=== PATIENT | female | born 1945 | race Caucasian/White ===

== ENCOUNTER → 2018-09-08 | Outpatient (CLI) | payer MEDICARE, BC ==
--- NOTE | 2018-09-08 09:07 | CT ---
EXAMINATION TYPE: CT sinus wo con DATE OF EXAM: 09/08/2018 COMPARISON: None HISTORY: Chronic sinusitis CT DLP: 649.20 mGycm. Automated Exposure Control for Dose Reduction was Utilized. TECHNIQUE: CT scan of the sinuses is performed without contrast, axial images are obtained, coronal r eformatted images are also reviewed. FINDINGS: The paranasal sinuses including the frontal, ethmoid, sphenoid, and maxillary sinuses bila terally are well-aerated without abnormal opacification. Frontal sinuses hypoplastic. The ostiomeatal complex is patent bilaterally on the coronal images. Visualized portion of mastoid air cells show no abnormal opacification. The globes are intact bilate rally. IMPRESSION: The sinuses are clear and the ostiomeatal complex is patent bilaterally.
== END | disposition home or self-care (01) ==
LOC: RADCTMAIN 08:28
PROVIDERS: ATTEND Family Medicine
DX: J32.9 Chronic sinusitis, unspecified (principal)
CPT/HCPCS: 70486

== ENCOUNTER → 2019-05-29 | Outpatient (CLI) | payer MEDICARE, BC ==
[~2019-05-29] MED LIST: DENOSUMAB 60 MG/ML 1 ML SYRINGE SQ ONE
[2019-05-29 14:35] VITALS: BP 117/56; PULSE 70; RESP 16; TEMP 97.7
== END | disposition home or self-care (01) ==
LOC: PROCWHC3 13:33
PROVIDERS: ATTEND Family Medicine
DX: M81.0 Age-related osteoporosis without current pathological fracture (principal)
CPT/HCPCS: 96372; J0897

== ENCOUNTER → 2019-06-12 | Outpatient (CLI) | payer MEDICARE, BC ==
--- NOTE | 2019-06-12 09:02 | US ---
EXAMINATION TYPE: US abdomen comp/pelvis limited DATE OF EXAM: 06/12/2019 COMPARISON: NONE CLINICAL HISTORY: R64 Cachexia. Patient states 20 pound weight loss in two months without trying. EXAM MEASUREMENTS: Liver Length: 11.4 cm Gallbladder Wall: 0.2 cm CBD: 0.4 cm Spleen: 10.2 cm Right Kidney: 10.6 x 4.5 x 5.4 cm Left Kidney: 9.5 x 5.3 x 5.2 cm Patient states history of complete hysterectomy. Pancreas: visualized portions wnl Liver: wnl Gallbladder: No stones seen CBD: wnl Spleen: wnl Right Kidney: No hydronephrosis or masses seen Left Kidney: No hydronephrosis or masses seen Upper IVC: wnl Abd Aorta: wnl Bladder: wnl Bilateral Jets Seen Yes Extensive fluid filled bowel noted in RLQ & LLQ. Patient is status post complete hysterectomy. No ova neil or uterus are seen. IMPRESSION: 1. Abdominal and pelvic ultrasound are unremarkable. No solid masses are seen of the liver, kidneys, spleen, or visualized portions of the pancreas. Pancreatic tail and uncinate process are obscured by bowel gas. 2. Fluid-filled bowel is seen in the lower abdomen. Considering the patient's symptoms CT with oral c ontrast or colonoscopy could be considered to exclude partially obstructing mass.
== END | disposition home or self-care (01) ==
LOC: RADUSWWP 08:11
PROVIDERS: ATTEND Family Medicine
DX: R64 Cachexia (principal)
CPT/HCPCS: 76700; 76857

== ENCOUNTER → 2019-06-22 | Outpatient (CLI) | payer MEDICARE, BC ==
--- NOTE | 2019-06-25 08:20 | BMR ---
EXAMINATION TYPE: MR breast BILAT wo/w con DATE OF EXAM: 06/22/2019 COMPARISON: NONE HISTORY: Abnormal weight loss, history of silicone implants. Family history of breast cancer. CONTRAST: Multiplanar, multisequence images of the breasts were acquired utilizing 5 mL intravenous Gadavist ga dolinium contrast. TECHNIQUE: A series of fat and water weighted images in the long and short axis views of both breasts are obtained in conjunction with dynamic contrast MRI with subtraction technique. Three-dimensional and additional postprocessing imaging is created on independent workstation and reviewed during offi cial interpretation of this study. FINDINGS: Bilateral subpectoral silicone breast implants are seen. Breast sizes are fairly symmetric. Overlying breast parenchyma is predominantly fatty replaced. There is minimal to no background enhan cement. There are symmetric slightly prominent bilateral axillary lymph nodes. No internal mammary ad enopathy. No cystic change identified in either breast. No pathologic enhancement or suspicious wilder s is seen. No extracapsular silicone to suggest implant rupture. No suspicious infolding or lingually supplying bilaterally. Osseous structures are intact. IMPRESSION: No MRI evidence for invasive malignancy in either breast. BI-RADS 2 benign findings right breast BI-RADS 2 benign findings left breast Recommendation: Annual bilateral breast mammogram.
== END | disposition home or self-care (01) ==
LOC: RADMRIMAIN 12:21
PROVIDERS: ATTEND Family Medicine
DX: R63.4 Abnormal weight loss (principal); Z98.82 Breast implant status
CPT/HCPCS: C8937; C8908; A9585; 77049

== ENCOUNTER → 2019-11-28 | Outpatient (CLI) | payer MEDICARE, BC ==
[~2019-11-28] MED LIST changes: +DENOSUMAB 60 MG/ML 1 ML SYRINGE SQ NR; -DENOSUMAB 60 MG/ML 1 ML SYRINGE SQ ONE
[2019-11-28 09:29] VITALS: BP 130/71; PULSE 70; RESP 16; TEMP 98
== END | disposition home or self-care (01) ==
LOC: PROCWHC3 09:16
PROVIDERS: ATTEND Family Medicine
DX: M81.0 Age-related osteoporosis without current pathological fracture (principal)
CPT/HCPCS: 96372; J0897

== ENCOUNTER → 2020-07-18 | Outpatient (CLI) | payer MEDICARE, BC ==
[2020-07-18 09:27] VITALS: BP 113/65; PULSE 70; RESP 15; TEMP 98.4
== END | disposition home or self-care (01) ==
LOC: PROCWHC3 08:55
PROVIDERS: ATTEND Family Medicine
DX: M81.0 Age-related osteoporosis without current pathological fracture (principal)
CPT/HCPCS: 96372; J0897

== ENCOUNTER 2020-12-11 21:25 | Emergency (ER) | payer MEDICARE, BC ==
--- NOTE | 2020-12-11 21:35 | ED ---
Nausea/Vomiting/Diarrhea HPI - General Chief complaint: Nausea/Vomiting/Diarrhea Stated complaint: Vomiting/dizzy Time Seen by Provider: 12/11/20 21:31 Source: patient Mode of arrival: ambulatory Limitations: no limitations - History of Present Illness Initial comments: 75-year-old female with history of COPD presents emergency Department with a chief complaint of weakness, vomiting and lightheadedness. Daughter is also present in the room to answer additional questions. Daughter states the patient has short-term memory loss at baseline. Daughter states the patient has been progressively feeling weaker over the last 3 weeks. States she's a very picky eater and not eating as much or drinking. Patient states over the last several days she developed some exertional dyspnea but she does have history of emphysema. She is a former smoker. Patient reports nausea with one episode of nonbilious and nonbloody vomiting today. Afterwards the patient developed some lightheadedness but no dizziness. She denies any headaches blurry vision, one-s ided weakness or paresthesias. She denies any chest pain neck pain or abdominal pain at this time. Patient reports diarrhea but states that her baseline because she takes prune juice daily due to history of small bowel obstruction. She denies any urinary or vaginal symptoms. Denies any fevers or chills. - Related Data Previous Rx's Medication Instructions Recorded Ondansetron Odt [Zofran Odt] 4 mg PO Q8HR PRN #10 tab 12/11/20 Allergies Allergy/AdvReac Type Severity Reaction Status Date / Time codeine AdvReac Severe Nausea & Verified 12/11/20 21:29 Vomiting Review of Systems ROS Statement: Those systems with pertinent positive or pertinent negative responses have been documented in the HPI. ROS Other: All systems not noted in ROS Statement are negative. Past Medical History Past Medical History: COPD, Liver Disease, Pneumonia Additional Past Medical History / Comment(s): OSTEOPOROSIS. History of Any Multi-Drug Resistant Organisms: None Reported Past Surgical History: Appendectomy, Breast Surgery, Hysterectomy Additional Past Surgical History / Comment(s): DOUBLE MASTECTOMY D/T "MULTIPLE LUMPS AND HISTORY OF CANCER IN THE FAMILy" Past Anesthesia/Blood Transfusion Reactions: No Reported Reaction Past Psychological History: No Psychological Hx Reported Smoking Status: Current every day smoker Past Alcohol Use History: None Reported Past Drug Use History: None Reported General Exam Limitations: no limitations General appearance: alert, in no apparent distress Head exam: Present: atraumatic, normocephalic, normal inspection Eye exam: Present: normal appearance, PERRL, EOMI Pupils: Present: normal accommodation ENT exam: Present: normal exam, normal oropharynx, mucous membranes dry, TM's normal bilaterally, normal external ear exam Neck exam: Present: normal inspection, full ROM. Absent: tenderness, lymphadenopathy Respiratory exam: Present: normal lung sounds bilaterally. Absent: respiratory distress, wheezes, rales, rhonchi, stridor, chest wall tenderness Cardiovascular Exam: Present: regular rate, normal rhythm, normal heart sounds GI/Abdominal exam: Present: soft. Absent: distended, tenderness, guarding, rebound Extremities exam: Present: normal inspection, full ROM, normal capillary refill, other (Palpable DP and PT bilaterally). Absent: tenderness, pedal edema, joint swelling, calf tenderness Back exam: Present: normal inspection, full ROM. Absent: tenderness, CVA tenderness (R), CVA tenderness (L) Neurological exam: Present: alert, oriented X3, CN II-XII intact, normal gait Psychiatric exam: Present: normal affect, normal mood Skin exam: Present: warm, dry, intact, normal color Course Vital Signs 12/11/20 21:26 Temperature 97.5 F L Pulse Rate 70 Respiratory 16 Rate Blood Pressure 147/81 O2 Sat by Pulse 100 Oximetry Medical Decision Making - Medical Decision Making 75-year-old female with history of COPD presents emergency Department with chief complaint of vomiting, lightheadedness and weakness. On physical examination, patient has dry mucous membranes. No focal deficits. Patient is resting comfortably in bed and is otherwise well-appearing. Chest x-ray is unremarkable. CBC shows no signs of anemia. Initial potassium levels were elevated at 5.8, repeat was drawn showing potassium levels of 4.8. Likely hemolyzed sample. Initial lactic acid was 2.2 likely secondary to dehydration. Coags within normal limits. Troponin negative. Elevated d-dimer is 0.68. CT chest Angio shows no signs of a PE. She does have mild pulmonary scarring, mild COPD. Patient was given 1 L of IV bolus fluids and antiemetics. On reevaluation, patient reports improvement in symptoms. She was more talkative a s well. I suspect the dehydration is secondary to decrease in appetite. Advised the patient to drink plenty of fluids and advised to the mother to reinforce her to eat and drink more. Advised him to follow with the primary care physician. Return parameters were thoroughly discussed with patient and daughter who are understanding and agreeable. Case discussed with - Lab Data Result diagrams: 12/11/20 22:00 12/11/20 22:30 Lab Results 12/11/20 12/11/20 12/11/20 Range/Units 22:00 22:00 22:00 WBC 9.4 (3.8-10.6) k/uL RBC 4.90 (3.80-5.40) m/uL Hgb 15.2 (11.4-16.0) gm/dL Hct 46.1 H (34.0-46.0) % MCV 94.1 (80.0-100.0) fL MCH 31.0 (25.0-35.0) pg MCHC 32.9 (31.0-37.0) g/dL RDW 12.6 (11.5-15.5) % Plt Count 226 (150-450) k/uL MPV 8.1 Neutrophils % 77 % Lymphocytes % 14 % Monocytes % 4 % Eosinophils % 3 % Basophils % 1 % Neutrophils # 7.2 (1.3-7.7) k/uL Lymphocytes # 1.3 (1.0-4.8) k/uL Monocytes # 0.4 (0-1.0) k/uL Eosinophils # 0.3 (0-0.7) k/uL Basophils # 0.0 (0-0.2) k/uL PT 9.7 (9.0-12.0) sec INR 0.9 (<1.2) APTT 23.2 (22.0-30.0) sec D-Dimer 0.68 H (<0.60) mg/L FEU Sodium 141 (137-145) mmol/L Potassium 5.8 H (3.5-5.1) mmol/L Chloride 105 (98-107) mmol/L Carbon Dioxide 28 (22-30) mmol/L Anion Gap 8 mmol/L BUN 14 (7-17) mg/dL Creatinine 0.71 (0.52-1.04) mg/dL Est GFR (CKD-EPI)AfAm >90 (>60 ml/min/1.73 sqM) Est GFR (CKD-EPI)NonAf 84 (>60 ml/min/1.73 sqM) Glucose 128 H (74-99) mg/dL Plasma Lactic Acid Griffin (0.7-2.0) mmol/L Calcium 9.5 (8.4-10.2) mg/dL Magnesium 2.3 (1.6-2.3) mg/dL Total Bilirubin 0.6 (0.2-1.3) mg/dL AST 26 (14-36) U/L ALT 16 (4-34) U/L Alkaline Phosphatase 64 (38-126) U/L Troponin I (0.000-0.034) ng/mL Total Protein 7.4 (6.3-8.2) g/dL Albumin 4.7 (3.5-5.0) g/dL TSH 3.210 (0.465-4.680) mIU/L 12/11/20 12/11/20 12/11/20 Range/Units 22:00 22:00 22:30 WBC (3.8-10.6) k/uL RBC (3.80-5.40) m/uL Hgb (11.4-16.0) gm/dL Hct (34.0-46.0) % MCV (80.0-100.0) fL MCH (25.0-35.0) pg MCHC (31.0-37.0) g/dL RDW (11.5-15.5) % Plt Count (150-450) k/uL MPV Neutrophils % % Lymphocytes % % Monocytes % % Eosinophils % % Basophils % % Neutrophils # (1.3-7.7) k/uL Lymphocytes # (1.0-4.8) k/uL Monocytes # (0-1.0) k/uL Eosinophils # (0-0.7) k/uL Basophils # (0-0.2) k/uL PT (9.0-12.0) sec INR (<1.2) APTT (22.0-30.0) sec D-Dimer (<0.60) mg/L FEU Sodium (137-145) mmol/L Potassium 4.8 (3.5-5.1) mmol/L Chloride (98-107) mmol/L Carbon Dioxide (22-30) mmol/L Anion Gap mmol/L BUN (7-17) mg/dL Creatinine (0.52-1.04) mg/dL Est GFR (CKD-EPI)AfAm (>60 ml/min/1.73 sqM) Est GFR (CKD-EPI)NonAf (>60 ml/min/1.73 sqM) Glucose (74-99) mg/dL Plasma Lactic Acid Griffin 2.2 H* (0.7-2.0) mmol/L Calcium (8.4-10.2) mg/dL Magnesium (1.6-2.3) mg/dL Total Bilirubin (0.2-1.3) mg/dL AST (14-36) U/L ALT (4-34) U/L Alkaline Phosphatase (38-126) U/L Troponin I <0.012 (0.000-0.034) ng/mL Total Protein (6.3-8.2) g/dL Albumin (3.5-5.0) g/dL TSH (0.465-4.680) mIU/L - EKG Data EKG Comments: Sinus rhythm and no ST or T-wave changes Ventricular rate 71, MI 116, QRS 76, QTC 467. Disposition Clinical Impression: Dehydration Disposition: HOME SELF-CARE Condition: Stable Instructions (If sedation given, give patient instructions): Dehydration (ED) Additional Instructions: Please return to the Emergency Department if symptoms worsen or any other concerns. Prescriptions: Ondansetron Odt [Zofran Odt] 4 mg PO Q8HR PRN #10 tab PRN Reason: Nausea Is patient prescribed a controlled substance at d/c from ED?: No Referrals: None,Stated [REFERRING] - 1-2 days Time of Disposition: 23:39
[2020-12-11] MEDS ORDERED: SODIUM CHLORIDE 0.9% 1,000 ML IV STA (21:51)
[2020-12-11] MEDS ORDERED: ONDANSETRON 4 MG/2 ML VIAL IVP STA (21:51)
[2020-12-11 22:10] LABS: Basophils % (A) 1 %; Eosinophils # (A) 0.3 k/uL (0-0.7); Eosinophils % (A) 3 %; HCT 46.1 % (34.0-46.0); HGB 15.2 gm/dL (11.4-16.0); Lymphocytes # (A) 1.3 k/uL (1.0-4.8); Lymphocytes % (A) 14 %; MCHC 32.9 g/dL (31.0-37.0); MCV 94.1 fL (80.0-100.0); Mean Platelet Volume 8.1; Monocytes # (A) 0.4 k/uL (0-1.0); Monocytes % (A) 4 %; Neutrophils # (A) 7.2 k/uL (1.3-7.7); Neutrophils % (A) 77 %; Platelet Count 226 k/uL (150-450); RDW 12.6 % (11.5-15.5); WBC 9.4 k/uL (3.8-10.6)
[2020-12-11 22:19] LABS: Albumin 4.7 g/dL (3.5-5.0)
--- NOTE | 2020-12-11 22:23 | XR ---
EXAMINATION TYPE: XR chest 2V DATE OF EXAM: 12/11/2020 COMPARISON: NONE HISTORY: Weakness TECHNIQUE: 2 views FINDINGS: Heart and mediastinum are normal. Lungs are clear. Diaphragm is normal. Bony thorax appears normal. There are no hilar masses. There is no pleural effusion. There are chest leads. IMPRESSION: No active cardiopulmonary disease. Normal heart.
[2020-12-11 22:24] LABS: ALT 16 U/L (4-34); AST 26 U/L (14-36); African American GFR (CKD) >90 (>60 ml/min/1.73 sqM); Alkaline Phosphatase 64 U/L (38-126); Anion Gap 8 mmol/L; Blood Urea Nitrogen 14 mg/dL (7-17); Calcium 9.5 mg/dL (8.4-10.2); Carbon Dioxide 28 mmol/L (22-30); Chloride 105 mmol/L (98-107); Glucose 128 mg/dL (74-99); Magnesium 2.3 mg/dL (1.6-2.3); Non-African American GFR(CKD) 84 (>60 ml/min/1.73 sqM); Potassium 5.8 mmol/L (3.5-5.1); Sodium 141 mmol/L (137-145); Total Bilirubin 0.6 mg/dL (0.2-1.3); Total Protein 7.4 g/dL (6.3-8.2)
[2020-12-11 22:33] LABS: INR 0.9 (<1.2); Partial Thromboplastin Time 23.2 sec (22.0-30.0); Prothrombin Time 9.7 sec (9.0-12.0)
--- NOTE | 2020-12-11 23:19 | CT ---
EXAMINATION TYPE: CT chest angio for PE DATE OF EXAM: 12/11/2020 COMPARISON: None HISTORY: Dyspnea on exertion, elevated d-dimer CT DLP: 238.7 mGycm Automated exposure control for dose reduction was used. CONTRAST: Performed with IV Contrast, patient injected with 70 mL of Isovue 370. Images were obtained from the thoracic inlet to the diaphragm with IV contrast and 3-D post processed images. There is some pleural thickening and nodularity at both lung apices. There is mild COPD There is no mediastinal adenopathy. There are no hilar masses. There are bilateral breast implants. T horacic aorta is intact. There is no aneurysm or dissection. There is normal contrast opacification of the pulmonary arteries. There are no filling defects. Heart size is normal. There is no pericardial effusion. Thoracic spine is intact. There is no deja anktia fracture. IMPRESSION: No evidence of pulmonary embolism. Pleural and pulmonary scarring at the lung apices. Mild COPD.
[2020-12-12 00:06] VITALS: BP 140/70; PULSE 80; RESP 19; TEMP 98
== END 2020-12-12 | disposition home or self-care (01) ==
LOC: EC 21:25
DX: E86.0 Dehydration (principal); F17.200 Nicotine dependence, unspecified, uncomplicated; J44.9 Chronic obstructive pulmonary disease, unspecified
CPT/HCPCS: 99284 ×2; 96374 ×2; 96361 ×2; 93005; 85379; 80053; 83605; 83735; 84132; 84443; 84484; 85025; 85610; 85730; 71046; 71275; J2405; Q9967

== ENCOUNTER → 2021-01-20 | Outpatient (CLI) | payer MEDICARE, BC ==
[2021-01-20 09:09] VITALS: BP 110/70; PULSE 71; RESP 16; TEMP 98.6
== END ==
LOC: PROCWHC3 09:00
PROVIDERS: ATTEND Family Medicine
DX: M81.0 Age-related osteoporosis without current pathological fracture (principal); Z87.891 Personal history of nicotine dependence
CPT/HCPCS: 96372; J0897

== ENCOUNTER → 2021-08-20 | Outpatient (CLI) | payer MEDICARE, BC ==
[2021-08-20 11:08] VITALS: BP 112/60; PULSE 69; RESP 16; TEMP 98.5
== END ==
LOC: PROCWHC3 10:44
PROVIDERS: ATTEND Family Medicine
DX: M81.0 Age-related osteoporosis without current pathological fracture (principal); Z87.891 Personal history of nicotine dependence; Z88.5 Allergy status to narcotic agent
CPT/HCPCS: 96372; J0897

== ENCOUNTER → 2022-03-26 | Outpatient (CLI) | payer MEDICARE, BC ==
[2022-03-26 12:59] VITALS: BP 110/65; PULSE 66; RESP 16; TEMP 98
== END ==
LOC: PROCWHC3 12:28
PROVIDERS: ATTEND Family Medicine
DX: M81.0 Age-related osteoporosis without current pathological fracture (principal); Z88.5 Allergy status to narcotic agent; Z87.891 Personal history of nicotine dependence
CPT/HCPCS: 96372; J0897

== ENCOUNTER → 2022-10-22 | Outpatient (CLI) | payer MEDICARE, BC ==
[2022-10-22 11:34] VITALS: BP 106/67; PULSE 84; RESP 16; TEMP 98.1
== END ==
LOC: PROCWHC3 11:01
PROVIDERS: ATTEND Family Medicine
DX: M81.0 Age-related osteoporosis without current pathological fracture (principal); Z88.5 Allergy status to narcotic agent; Z87.891 Personal history of nicotine dependence
CPT/HCPCS: 96372; J0897

== ENCOUNTER → 2023-07-20 | Outpatient (CLI) | payer MEDICARE, BC ==
[2023-07-20 13:25] VITALS: BP 97/64; PULSE 64; RESP 16; TEMP 98.4
== END ==
LOC: PROCWHC3 12:52
PROVIDERS: ATTEND Physician Assistant Medical
DX: M81.0 Age-related osteoporosis without current pathological fracture (principal)
CPT/HCPCS: 96372; J0897

== ENCOUNTER 2024-07-25 16:14 | Inpatient (IN) | payer MEDICARE, BC ==
[2024-07-25 16:43] LABS: Glucose,Whole Blood 100 mg/dL (70-110)
[2024-07-25 19:23] LABS: Glucose,Whole Blood 95 mg/dL (70-110)
[2024-07-25 19:31] LABS: Basophils % (A) 0 %; Eosinophils # (A) 0.3 k/uL (0-0.7); Eosinophils % (A) 3 %; HGB 15.5 gm/dL (11.4-16.0); Lymphocytes # (A) 1.3 k/uL (1.0-4.8); Lymphocytes % (A) 18 %; MCH 31.5 pg (25.0-35.0); MCV 95.5 fL (80.0-100.0); Mean Platelet Volume 8.6; Monocytes # (A) 0.4 k/uL (0-1.0); Monocytes % (A) 6 %; Neutrophils # (A) 5.1 k/uL (1.3-7.7); Neutrophils % (A) 70 %; Platelet Count 246 k/uL (150-450); RBC 4.92 m/uL (3.80-5.40); RDW 12.3 % (11.5-15.5); WBC 7.3 k/uL (3.8-10.6)
[2024-07-25 19:34] LABS: Appearance,Urine Clear (Clear); Bacteria,Urine Occasional /hpf; Bilirubin,Urine Negative (Negative); Blood,Urine Negative (Negative); Color,Urine Colorless; Glucose,Urine (UA) Negative (Negative); Ketones,Urine Negative (Negative); Leukocyte Esterase,Urine Small (Negative); Mucus,Urine Rare /hpf; Nitrite,Urine Positive (Negative); Protein,Urine Negative (Negative); Specific Gravity,Urine 1.008 (1.001-1.035); Squamous Epithelial Cell,Urine <1 /hpf (0-4); Urobilinogen,Urine <2.0 mg/dL (<2.0); WBC,Urine 2 /hpf (0-5)
[2024-07-25 20:00] LABS: ALT 12 U/L (4-34); AST 20 U/L (14-36); African American GFR (CKD) >90 (>60 ml/min/1.73 sqM); Albumin 4.1 g/dL (3.5-5.0); Alkaline Phosphatase 85 U/L (38-126); Anion Gap 5 mmol/L; Blood Urea Nitrogen 16 mg/dL (7-17); Calcium 9.7 mg/dL (8.4-10.2); Carbon Dioxide 29 mmol/L (22-30); Chloride 105 mmol/L (98-107); Glucose 96 mg/dL (74-99); Non-African American GFR(CKD) 82 (>60 ml/min/1.73 sqM); Potassium 4.7 mmol/L (3.5-5.1); Sodium 139 mmol/L (137-145); Total Bilirubin 0.8 mg/dL (0.2-1.3); Total Protein 6.9 g/dL (6.3-8.2)
--- NOTE | 2024-07-25 20:09 | ED ---
General Adult HPI - General Chief complaint: Dizziness Stated complaint: dizziness Time Seen by Provider: 07/25/24 16:40 Source: patient Mode of arrival: ambulatory Limitations: no limitations - History of Present Illness Initial comments: 78-year-old female presents from home with altered mental status and inability to ambulate. Daughter is at bedside and helps for the history. States that she received multiple calls from her mother today stating that she could not ambulate due to feeling off balance. Patient seemed confused. She does have baseline dementia and will have some repetitive statements however daughter states that she is nothing like today. She is weak and was having difficulty ambulating. Patient felt like she was going a fall. Due to the symptoms she brought her into the hospital. The patient denies having any falls. No head injuries. No history of stroke. Denies any lateralizing weakness. No headache or visual changes. No speech deficit. She denies any urinary complaints to include dysuria, hematuria or difficulty voiding. No nausea or vomiting. No other alleviating, precipitating modifying factors - Related Data Home Medications Medication Instructions Recorded Confirmed No Known Home Medications 07/26/24 07/26/24 Allergies Allergy/AdvReac Type Severity Reaction Status Date / Time codeine AdvReac Severe Nausea & Verified 07/26/24 09:43 Vomiting Review of Systems ROS Statement: Those systems with pertinent positive or pertinent negative responses have been documented in the HPI. ROS Other: All systems not noted in ROS Statement are negative. Past Medical History Past Medical History: COPD, Dementia, Liver Disease, Pneumonia Additional Past Medical History / Comment(s): OSTEOPOROSIS. History of Any Multi-Drug Resistant Organisms: None Reported Past Surgical History: Appendectomy, Breast Surgery, Hysterectomy Additional Past Surgical History / Comment(s): DOUBLE MASTECTOMY D/T "MULTIPLE LUMPS AND HISTORY OF CANCER IN THE FAMILy" Past Anesthesia/Blood Transfusion Reactions: No Reported Reaction Past Psychological History: No Psychological Hx Reported Smoking Status: Current every day smoker Past Alcohol Use History: None Reported Past Drug Use History: None Reported General Exam Limitations: no limitations General appearance: alert, in no apparent distress Head exam: Present: atraumatic, normocephalic, normal inspection Eye exam: Present: normal appearance, PERRL, EOMI. Absent: scleral icterus, conjunctival injection, periorbital swelling ENT exam: Present: normal exam, mucous membranes moist Neck exam: Present: normal inspection. Absent: tenderness, meningismus, lymphadenopathy Respiratory exam: Present: normal lung sounds bilaterally. Absent: respiratory distress, wheezes, rales, rhonchi, stridor Cardiovascular Exam: Present: regular rate, normal rhythm, normal heart sounds. Absent: systolic murmur, diastolic murmur, rubs, gallop, clicks GI/Abdominal exam: Present: soft, normal bowel sounds. Absent: distended, tenderness, guarding, rebound, rigid Extremities exam: Present: normal inspection, full ROM, normal capillary refill. Absent: tenderness, pedal edema, joint swelling, calf tenderness Back exam: Present: normal inspection Neurological exam: Present: alert, CN II-XII intact, other (Oriented x 2) Psychiatric exam: Present: normal affect, normal mood Skin exam: Present: warm, dry, intact, normal color. Absent: rash Course Vital Signs 07/25/24 07/25/24 07/25/24 16:38 18:00 21:41 Temperature 97.3 F L Pulse Rate 66 67 68 Respiratory 22 16 16 Rate Blood Pressure 120/71 125/68 132/70 O2 Sat by Pulse 99 97 Oximetry 07/25/24 07/26/24 07/26/24 22:50 01:36 03:50 Temperature 97.3 F L Pulse Rate 65 67 54 L Respiratory 18 16 14 Rate Blood Pressure 133/69 114/50 90/54 O2 Sat by Pulse 98 98 97 Oximetry 07/26/24 07/26/24 07/26/24 06:14 09:18 13:28 Temperature 97.3 F L Pulse Rate 57 L 60 64 Respiratory 15 16 16 Rate Blood Pressure 102/50 108/57 104/48 O2 Sat by Pulse 99 95 95 Oximetry 07/26/24 20:31 Temperature 98.3 F Pulse Rate 66 Respiratory 16 Rate Blood Pressure 136/67 O2 Sat by Pulse 97 Oximetry Medical Decision Making - Medical Decision Making Was pt. sent in by a medical professional or institution (, PA, APPLICATIONS SUPPORT LEAD, urgent care, hospital, or long term...) When possible be specific @ -No Did you speak to anyone other than the patient for history (EMS, parent, family, police, friend...)? What history was obtained from this source @ -Spoke with the daughter for history who reports that the patient is confused Did you review nursing and triage notes (agree or disagree)? Why? @ -I reviewed and agree with nursing and triage notes Were old charts reviewed (outside hosp., previous admission, EMS record, old EKG, old radiological studies, urgent care reports/EKG's, long term records)? Report findings @ -No old charts were reviewed Differential Diagnosis (chest pain, altered mental status, abdominal pain women, abdominal pain men, vaginal bleeding, weakness, fever, dyspnea, syncope, headache, dizziness, GI bleed, back pain, seizure, CVA, palpatations, mental health, musculoskeletal)? @ -Differential Altered Mental Status: Hypoglycemia, DKA, hypercapnia, ETOH, overdose, CO poisoning, trauma, myxedema coma, HTN encephalopathy, infection, encephalitis, psychosis, intercranial hemorrhage, hepatic encephalopathy, meningitis, CVA, this is not meant to be an all-inclusive list EKG interpreted by me (3pts min.). @ -Yes and demonstrates sinus rhythm with rate of 66. ND interval 147. QRS 80. QTc 411. No acute ST segment elevations or depressions X-rays interpreted by me (1pt min.). @ -Yes and demonstrates no acute process CT interpreted by me (1pt min.). @ -Yes and demonstrates no acute process U/S interpreted by me (1pt. min.). @ -None done What testing was considered but not performed or refused? (CT, X-rays, U/S, labs)? Why? @ -None What meds were considered but not given or refused? Why? @ -None Did you discuss the management of the patient with other professionals (professionals i.e. , PA, APPLICATIONS SUPPORT LEAD, lab, RT, psych nurse, home health care social worker, plastics patternmaker, teacher, purchasing officer, supportive employment case manager)? Give summary @ -Spoke with Dr. Najera for admission Was smoking cessation discussed for >3mins.? @ -No Was critical care preformed (if so, how long)? @ -No Were there social determinants of health that impacted care today? How? (Homelessness, low income, unemployed, alcoholism, drug addiction, transportation, low edu. Level, literacy, decrease access to med. care, assisted, rehab)? @ -No Was there de-escalation of care discussed even if they declined (Discuss DNR or withdrawal of care, Hospice)? DNR status @ -No What co-morbidities impacted this encounter? (DM, HTN, Smoking, COPD, CAD, Cancer, CVA, ARF, Chemo, Hep., AIDS, mental health diagnosis, sleep apnea, morbid obesity)? @ -Dementia Was patient admitted / discharged? Hospital course, mention meds given and route, prescriptions, significant lab abnormalities, going to OR and other pertinent info. @ -Upon arrival patient seen and evaluated in hallway 22. Thorough history and physical exam was performed. IV access was established. Laboratory studies were conducted. CT of the brain was performed due to confusion and ataxia. Results are discussed with the daughter and patient. Recommended admission as the patient does live alone. Patient was agreeable to this. Antibiotics are initiated for UTI. Neurology will be consulted for ataxia Undiagnosed new problem with uncertain prognosis? @ -No Drug Therapy requiring intensive monitoring for toxicity (Heparin, Nitro, Insulin, Cardizem)? @ -No Were any procedures done? @ -No Diagnosis/symptom? @ -Acute encephalopathy, acute UTI, acute ataxia Acute, or Chronic, or Acute on Chronic? @ -Acute Uncomplicated (without systemic symptoms) or Complicated (systemic symptoms)? @ -Complicated Side effects of treatment? @ -No Exacerbation, Progression, or Severe Exacerbation? @ -No Poses a threat to life or bodily function? How? (Chest pain, [place], [place], pneumonia, PE, COPD, DKA, ARF, appy, cholecystitis, CVA, Diverticulitis, Homicidal, Suicidal, threat to staff... and all critical care pts) @ -No - Lab Data Result diagrams: 07/26/24 07:12 07/26/24 07:12 Lab Results 07/25/24 07/25/24 07/25/24 Range/Units 16:42 18:13 18:13 WBC 7.3 (3.8-10.6) k/uL RBC 4.92 (3.80-5.40) m/uL Hgb 15.5 (11.4-16.0) gm/dL Hct 47.0 H (34.0-46.0) % MCV 95.5 (80.0-100.0) fL MCH 31.5 (25.0-35.0) pg MCHC 33.0 (31.0-37.0) g/dL RDW 12.3 (11.5-15.5) % Plt Count 246 (150-450) k/uL MPV 8.6 Neutrophils % 70 % Lymphocytes % 18 % Monocytes % 6 % Eosinophils % 3 % Basophils % 0 % Neutrophils # 5.1 (1.3-7.7) k/uL Lymphocytes # 1.3 (1.0-4.8) k/uL Monocytes # 0.4 (0-1.0) k/uL Eosinophils # 0.3 (0-0.7) k/uL Basophils # 0.0 (0-0.2) k/uL Sodium (137-145) mmol/L Potassium (3.5-5.1) mmol/L Chloride (98-107) mmol/L Carbon Dioxide (22-30) mmol/L Anion Gap mmol/L BUN (7-17) mg/dL Creatinine (0.52-1.04) mg/dL Est GFR (CKD-EPI)AfAm (>60 ml/min/1.73 sqM) Est GFR (CKD-EPI)NonAf (>60 ml/min/1.73 sqM) Glucose (74-99) mg/dL POC Glucose (mg/dL) 100 (70-110) mg/dL POC Glu Certified Ethical Hacker ID [place] Calcium (8.4-10.2) mg/dL Total Bilirubin (0.2-1.3) mg/dL AST (14-36) U/L ALT (4-34) U/L Alkaline Phosphatase (38-126) U/L Troponin I (0.000-0.034) ng/mL Total Protein (6.3-8.2) g/dL Albumin (3.5-5.0) g/dL Urine Color Colorless Urine Appearance Clear (Clear) Urine pH 7.0 (5.0-8.0) Ur Specific [place] 1.008 (1.001-1.035) Urine Protein Negative (Negative) Urine Glucose (UA) Negative (Negative) Urine Ketones Negative (Negative) Urine Blood Negative (Negative) Urine Nitrite Positive H (Negative) Urine Bilirubin Negative (Negative) Urine Urobilinogen <2.0 (<2.0) mg/dL Ur Leukocyte Esterase Small H (Negative) Urine WBC 2 (0-5) /hpf Ur Squamous Epith Cells <1 (0-4) /hpf Urine Bacteria Occasional H (None) /hpf Urine Mucus Rare H (None) /hpf 07/25/24 07/25/24 07/25/24 Range/Units 18:13 19:15 19:21 WBC (3.8-10.6) k/uL RBC (3.80-5.40) m/uL Hgb (11.4-16.0) gm/dL Hct (34.0-46.0) % MCV (80.0-100.0) fL MCH (25.0-35.0) pg MCHC (31.0-37.0) g/dL RDW (11.5-15.5) % Plt Count (150-450) k/uL MPV Neutrophils % % Lymphocytes % % Monocytes % % Eosinophils % % Basophils % % Neutrophils # (1.3-7.7) k/uL Lymphocytes # (1.0-4.8) k/uL Monocytes # (0-1.0) k/uL Eosinophils # (0-0.7) k/uL Basophils # (0-0.2) k/uL Sodium 139 (137-145) mmol/L Potassium 4.7 (3.5-5.1) mmol/L Chloride 105 (98-107) mmol/L Carbon Dioxide 29 (22-30) mmol/L Anion Gap 5 mmol/L BUN 16 (7-17) mg/dL Creatinine 0.71 (0.52-1.04) mg/dL Est GFR (CKD-EPI)AfAm >90 (>60 ml/min/1.73 sqM) Est GFR (CKD-EPI)NonAf 82 (>60 ml/min/1.73 sqM) Glucose 96 (74-99) mg/dL POC Glucose (mg/dL) 95 (70-110) mg/dL POC Glu Certified Ethical Hacker ID [place] Calcium 9.7 (8.4-10.2) mg/dL Total Bilirubin 0.8 (0.2-1.3) mg/dL AST 20 (14-36) U/L ALT 12 (4-34) U/L Alkaline Phosphatase 85 (38-126) U/L Troponin I <0.012 (0.000-0.034) ng/mL Total Protein 6.9 (6.3-8.2) g/dL Albumin 4.1 (3.5-5.0) g/dL Urine Color Urine Appearance (Clear) Urine pH (5.0-8.0) Ur Specific [place] (1.001-1.035) Urine Protein (Negative) Urine Glucose (UA) (Negative) Urine Ketones (Negative) Urine Blood (Negative) Urine Nitrite (Negative) Urine Bilirubin (Negative) Urine Urobilinogen (<2.0) mg/dL Ur Leukocyte Esterase (Negative) Urine WBC (0-5) /hpf Ur Squamous Epith Cells (0-4) /hpf Urine Bacteria (None) /hpf Urine Mucus (None) /hpf Disposition Clinical Impression: Encephalopathy acute, UTI (urinary tract infection), Ataxia Disposition: ADMITTED IP TO THIS HOSP Condition: Stable Is patient prescribed a controlled substance at d/c from ED?: No Time of Disposition: 22:18 Decision to Admit Reason: Admit from EC Decision Date: 07/25/24 Decision Time: 22:18
[2024-07-25] MEDS: SODIUM CHLORIDE 0.9% 1,000 ML IV STA (20:27)
[2024-07-25] MEDS: cefTRIAXone IN SWFI 1,000 MG/10 ML SYRINGE IVP STA (20:28)
--- NOTE | 2024-07-25 21:16 | CT ---
EXAMINATION TYPE: CT brain wo con CT DLP: Combined DLP [id number] mGycm, Automated exposure control for dose reduction was used. DATE OF EXAM: 07/25/2024 8:41 PM COMPARISON: 09/08/2018. CLINICAL INDICATION: Female, 78 years old with history of ataxia, Ataxia TECHNIQUE: Brain: Axial CT images of the brain were obtained with coronal and sagittal reformats created and rev iewed. Contrast used: None. Oral contrast used: None. FINDINGS: Brain: Extra-axial spaces: No abnormal extra-axial fluid collections. Ventricular system: Within normal limits Cerebral parenchyma: No acute intraparenchymal hemorrhage or mass effect. The monahan-white junction is well differentiated. Cerebellum: Unremarkable. Mass effect: No evidence of midline shift. Intracranial vasculature: Atherosclerotic calcifications of the intracranial vessels. Soft tissues: Normal. Calvarium/osseous structures: No depressed skull fracture. Paranasal sinuses and mastoid air cells: Mild scattered paranasal sinus disease. Visualized orbits: Bilateral aphakia IMPRESSION: No acute intracranial process. [facility], , 07/25/2024 9:14 PM
--- NOTE | 2024-07-25 21:26 | CT ---
EXAMINATION TYPE: CT angio head neck CT DLP: Combined DLP of mGycm, Automated exposure control for dose reduction was used. DATE OF EXAM: 07/25/2024 8:46 PM COMPARISON: 07/11/2023. CLINICAL INDICATION: Female, 78 years old with history of ataxia; PHH, Ataxia TECHNIQUE: Axially acquired helical CT angiogram of the head and neck was obtained with contrast. Axi al images are supplemented with 3D reconstructions and MIP images which were post-processed at an in dependent workstation. NASCET criteria used. Contrast used:65cc mL of Isovue 370 with IV Contrast, Oral contrast used: None. FINDINGS: CTA HEAD: No evidence of acute intracranial hemorrhage, mass effect, or midline shift. The ventricles, sulci, a nd cisterns are unremarkable. Vertebral arteries: The vertebral arteries are patent. Vertebral artery dominance: Codominant Basilar artery: The basilar artery is intact. The basilar artery bifurcation is normal. Internal Carotid arteries: The cervical, petrous, cavernous and supraclinoid segments are normal. DAVID: Patent with no evidence of aneurysm. ACOM: Present without evidence of aneurysm. MCA: Patent with no evidence of aneurysm. SAUSAGE MIXER: Patent with no evidence of aneurysm. PCOM: Hypoplastic bilaterally. Dural sinuses: Patent. CTA NECK: Right Carotid System: The common carotid and external carotid arteries are patent. There is less than 25% stenosis at the c arotid bifurcation secondary to calcified/noncalcified plaque. The rest of the internal carotid arter y is patent. Left Carotid System: The common carotid and external carotid arteries are patent. There is less than 25% stenosis at the c arotid bifurcation secondary to calcified/noncalcified plaque. The rest of the internal carotid arter y is patent. Vertebral arteries are patent without evidence hemodynamically significant stenosis. There is a three-vessel aortic arch. The origins of the great vessels are patent. No evidence of hemo dynamically significant stenosis. Upper thorax: Centrilobular and paraseptal emphysema changes. Scattered sub-6 mm pulmonary nodules. P artially visualized breast implants with calcifications along the capsule on the left. IMPRESSION: 1. No evidence of dissection of the cervical internal carotid arteries or vertebral arteries or any e vidence of significant stenosis at the carotid bifurcations. 2. No evidence of intracranial high-grade stenosis or intracranial aneurysm. 3. Scattered sub-6 mm pulmonary nodules, follow-up low-dose lung cancer screening recommended as cynthia ent/exam was 07/11/2023 on a nonemergent outpatient basis.. 4. Mild emphysema changes. [facility], , 07/25/2024 9:23 PM
--- NOTE | 2024-07-25 22:12 | XR ---
EXAMINATION TYPE: XR chest 2V DATE OF EXAM: 07/25/2024 9:58 PM CLINICAL INDICATION: Female, 78 years old with history of near syncope; [facility] COMPARISON: Chest radiographs from 12/11/2020 TECHNIQUE: XR chest 2V Frontal view of the chest. FINDINGS: Lungs/Pleura: There is flattening of the diaphragm with increased lucency of the lungs. No evidence o f pneumothorax, pleural effusion or focal consolidation. Pulmonary vascularity: Unremarkable. Heart/mediastinum: Cardiomediastinal silhouette is unremarkable. Musculoskeletal: No acute osseous pathology. Other findings: bilateral breast implants present IMPRESSION: 1. No acute cardiopulmonary disease process. 2. COPD changes. [facility], , 07/25/2024 10:10 PM
[2024-07-25] MEDS ORDERED: NALOXONE 0.4 MG/ML 1 ML VIAL IV PRN (22:19)
--- NOTE | 2024-07-25 23:43 | P.HPIM ---
History of Present Illness H&P Date: 07/25/24 Chief Complaint: UTI with confusion Patient is a 78-year-old female with COPD, and dementia who came in for altered mental status and inability to ambulate. Patient is a poor historian and does not recall any events for the last 24 hours. Per ED documentation, patient's daughter mentioned that she received multiple calls from her mother stating that she could not ambulate due to feeling off balance and seemed confused. Although patient has dementia, daughter reported that this is worse than her baseline. Patient denies focal weakness, changes in vision, changes in speech, tremors, fever, diaphoresis, chills chest pain, shortness of breath, leg pain, abdominal pain, hematuria, dysuria, nausea or vomiting, diarrhea, constipation, or recent travel. She is a current smoker and she has smoked half a pack a day for 60 years. Review of systems: Pertinent positives and negatives as discussed in HPI, a complete review of systems was performed and all other systems are negative. Physical examination: Vital signs reviewed General: non toxic, no distress, appears at stated age Derm: no unusual rashes/lesions, warm Head: atraumatic, normocephalic, symmetric Eyes: EOMI, anicteric sclera, pupils equal round reactive to light ENT: Nose and ears atraumatic Neck: No no masses or lesions, trachea midline, supple Mouth: no lip lesion, mucus membranes moist Cardiovascular: S1S2 reg, no murmur Lungs: CTA bilateral, no rhonchi, no rales, no accessory muscle use Abdominal: soft, nondistended, nontender to palpation, no guarding Ext: muscle strength 5 out of 5 in distal upper and lower extremities grossly, no gross muscle atrophy, no contractures, positive dorsalis pedis pulse bilateral, no leg edema Neuro: CN II-XI grossly intact, no gross focal neuro deficits Psych: Alert and oriented x 3, appropriate affect and mood Assessment/Plan: 78-year-old female who came in for altered mental status and inability to ambulate. Imaging is negative for ischemic or hemorrhagic stroke, VTE, or OR. Urinalysis showed positive for UTI . ED documentation reviewed and case discussed with ED provider. Agreed to admit this patient for encephalopathy and evaluation of UTI. Anticipated length of stay is greater than 2 midnights for evaluation. #. Delirium due to UTI Brain CT negative for ischemia, bleeds or aneurysms.Urinalysis positive for nitrites and leukocyte esterase -Fall precautions -Rocephin 1 g IVPB daily -IV fluids NS 0.9% 75 cc/h -Tylenol 650 mg p.o. every 6 hours as needed for fever and pain -CBC and CMP, mag, and Phos at a.m. -Consult neurology blood work showing , WBC 7 Hgn 15.5 , unremarkable renal fucntion unremarkable na 139, K 4..7 ,BUN 16 cr 0.7 Chronic conditions: #. COPD -Resume home medications once reconciled DVT prophylaxis: Lovenox 40 mg SQ daily CODE STATUS: Full Discussed with: Patient Anticipated discharge place: Home Past Medical History Past Medical History: COPD, Dementia, Liver Disease, Pneumonia Additional Past Medical History / Comment(s): OSTEOPOROSIS. History of Any Multi-Drug Resistant Organisms: None Reported Past Surgical History: Appendectomy, Breast Surgery, Hysterectomy Additional Past Surgical History / Comment(s): DOUBLE MASTECTOMY D/T "MULTIPLE LUMPS AND HISTORY OF CANCER IN THE FAMILy" Past Anesthesia/Blood Transfusion Reactions: No Reported Reaction Past Psychological History: No Psychological Hx Reported Smoking Status: Current every day smoker Past Alcohol Use History: None Reported Past Drug Use History: None Reported Medications and Allergies Home Medications Medication Instructions Recorded Confirmed Type Multivitamin [Multivitamins Adult 1 tab PO DAILY 03/26/22 07/20/23 History Gummies] Tumeric 1 tab PO DAILY 03/26/22 07/20/23 History Allergies Allergy/AdvReac Type Severity Reaction Status Date / Time codeine AdvReac Severe Nausea & Verified 07/25/24 16:41 Vomiting Physical Exam Vitals: Vital Signs Temp Pulse Resp BP Pulse Ox 07/25/24 21:41 68 16 132/70 97 07/25/24 18:00 67 16 125/68 07/25/24 16:38 97.3 F L 66 22 120/71 99 Intake and Output 07/25/24 07/25/24 07/25/24 06:59 14:59 22:59 Other: Weight 46.72 kg Results CBC & Chem 7: 07/25/24 18:13 07/25/24 18:13 Labs: Abnormal Lab Results - Last 24 Hours (Table) 07/25/24 07/25/24 Range/Units 18:13 18:13 Hct 47.0 H (34.0-46.0) % Urine Nitrite Positive H (Negative) Ur Leukocyte Esterase Small H (Negative) Urine Bacteria Occasional H (None) /hpf Urine Mucus Rare H (None) /hpf
[2024-07-26] MEDS ORDERED: ONDANSETRON 4 MG/2 ML VIAL IVP PRN (00:34)
[2024-07-26] MEDS ORDERED: DOCUSATE 100 MG CAP PO PRN (00:34)
[2024-07-26 08:10] LABS: Basophils % (A) 1 %; Eosinophils # (A) 0.2 k/uL (0-0.7); Eosinophils % (A) 3 %; HCT 46.5 % (34.0-46.0); HGB 14.3 gm/dL (11.4-16.0); Lymphocytes # (A) 0.8 k/uL (1.0-4.8); Lymphocytes % (A) 13 %; MCH 29.7 pg (25.0-35.0); MCHC 30.8 g/dL (31.0-37.0); MCV 96.4 fL (80.0-100.0); Monocytes # (A) 0.4 k/uL (0-1.0); Monocytes % (A) 7 %; Neutrophils # (A) 4.8 k/uL (1.3-7.7); Neutrophils % (A) 75 %; Platelet Count 232 k/uL (150-450); RBC 4.82 m/uL (3.80-5.40); RDW 12.3 % (11.5-15.5); WBC 6.4 k/uL (3.8-10.6)
[2024-07-26 08:26] LABS: African American GFR (CKD) >90 (>60 ml/min/1.73 sqM); Anion Gap 2 mmol/L; Blood Urea Nitrogen 10 mg/dL (7-17); Calcium 9.4 mg/dL (8.4-10.2); Carbon Dioxide 27 mmol/L (22-30); Chloride 109 mmol/L (98-107); Glucose 89 mg/dL (74-99); Magnesium 1.8 mg/dL (1.6-2.3); Non-African American GFR(CKD) 85 (>60 ml/min/1.73 sqM); Phosphorus 4.2 mg/dL (2.5-4.5); Potassium 5.4 mmol/L (3.5-5.1); Sodium 138 mmol/L (137-145)
[2024-07-26] MEDS ORDERED: cefTRIAXone IN SWFI 1,000 MG/10 ML SYRINGE IVP SCH (09:00)
[2024-07-26] MEDS: ENOXAPARIN 40 MG/0.4 ML SYRINGE SQ SCH (09:06)
[2024-07-26] MEDS: SODIUM CHLORIDE 0.9% 1,000 ML IV SCH ×2 (09:14→09:20)
[2024-07-26] MEDS: PANTOPRAZOLE 40 MG TABLET PO SCH (09:18)
--- NOTE | 2024-07-26 12:07 | P.PN ---
Subjective Progress Note Date: 07/26/24 Hospital Course: 78-year-old female with history of dementia, COPD presenting with altered menta tion and weakness. Vital signs unremarkable, laboratory workup unremarkable except for urine was positive for nitrites and small leukocyte esterase. Head CT did not show any acute process. CTA head and neck showed scattered sub-6 mm pulmonary nodules, recommending outpatient low-dose lung cancer screening. EKG showed normal sinus rhythm. Chest x-ray showed no acute process. Patient admitted for acute encephalopathy secondary to likely urinary tract infection with. Patient also had ataxia, neurology consulted. Subjective: She is seen and examined at bedside. No acute events overnight. Pertinent positives and negatives as discussed above, a complete review of systems was performed and all other systems are negative. Vitals Signs Reviewed. General: Nontoxic, no distress, appears at stated age Derm: Warm, dry Head: Atraumatic, normocephalic, symmetric Eyes: EOMI, no lid lag, anicteric sclera Mouth: No lip lesion, mucus membranes moist Cardiovascular: S1S2 reg, no murmur Lungs: CTA bilateral, no rhonchi, no rales, no accessory muscle use Abdominal: Soft, nontender to palpation, no guarding, no appreciable organomegaly Ext: No gross muscle atrophy, no edema, no contractures Neuro: CN II-XI grossly intact, no focal neuro deficits Psych: Alert, oriented x 1, appropriate affect Data Reviewed Today: Pertinent Labs: WBC 6.4, hemoglobin 14.3, potassium 5.4, creatinine 0.67, magnesium 1.8 Imaging: No new imaging Assessment and Plan: Acute encephalopathy Generalized weakness Ataxia History of dementia Urinary tract infection -CT brain, CTA head and neck did not show any acute process -B12, folic acid, TSH ordered -Patient to be continued on ceftriaxone 1 g IV daily -Urine cultures not obtained prior to giving antibiotics -Neurology consulted, pending recommendations Mild hyperkalemia -Repeat BMP tomorrow COPD, not in exacerbation -Continue to monitor Subcentimeter pulmonary nodules -Outpatient follow-up DVT ppx: Lovenox Code status: Full code Anticipated discharge place: Pending clinical course Anticipated discharge time: Pending clinical course Objective - Vital Signs Vital signs: Vital Signs Temp 97.3 F L 07/25/24 22:50 Pulse 60 07/26/24 09:18 Resp 16 07/26/24 09:18 BP 108/57 07/26/24 09:18 Pulse Ox 95 07/26/24 09:18 FiO2 Intake & Output 07/25/24 07/26/24 07/26/24 18:59 06:59 18:59 Weight 46.72 kg Other: # Voids 1 - Labs CBC & Chem 7: 07/26/24 07:12 07/26/24 07:12 Labs: Abnormal Lab Results - Last 24 Hours (Table) 07/25/24 07/25/24 07/26/24 Range/Units 18:13 18:13 07:12 Hct 47.0 H 46.5 H (34.0-46.0) % MCHC 30.8 L (31.0-37.0) g/dL Lymphocytes # 0.8 L (1.0-4.8) k/uL Potassium (3.5-5.1) mmol/L Chloride (98-107) mmol/L Urine Nitrite Positive H (Negative) Ur Leukocyte Esterase Small H (Negative) Urine Bacteria Occasional H (None) /hpf Urine Mucus Rare H (None) /hpf 07/26/24 Range/Units 07:12 Hct (34.0-46.0) % MCHC (31.0-37.0) g/dL Lymphocytes # (1.0-4.8) k/uL Potassium 5.4 H (3.5-5.1) mmol/L Chloride 109 H (98-107) mmol/L Urine Nitrite (Negative) Ur Leukocyte Esterase (Negative) Urine Bacteria (None) /hpf Urine Mucus (None) /hpf
[2024-07-26 14:12] VITALS: BMI 17.1
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
[2024-07-27 10:16] LABS: Appearance,Urine Clear (Clear); Bilirubin,Urine Negative (Negative); Blood,Urine Negative (Negative); Color,Urine Colorless; Glucose,Urine (UA) Negative (Negative); Ketones,Urine Negative (Negative); Leukocyte Esterase,Urine Negative (Negative); Nitrite,Urine Negative (Negative); Protein,Urine Negative (Negative); Specific Gravity,Urine 1.015 (1.001-1.035); Urobilinogen,Urine <2.0 mg/dL (<2.0)
[2024-07-27] MEDS: FOLIC ACID 1 MG TAB PO SCH (11:14)
[2024-07-27] MEDS: CYANOCOBALAMIN 1,000 MCG/ML 1 ML VIAL IM SCH (11:14)
[2024-07-27 11:16] LABS: BUN/Creat Ratio 13.57 Ratio (12.00-20.00); Blood Urea Nitrogen 9.5 mg/dL (9.0-27.0); Calcium 8.9 mg/dL (8.7-10.3); Carbon Dioxide 23.6 mmol/L (21.6-31.8); Chloride 109 mmol/L (96-109); Glucose 97 mg/dL (70-110); Potassium 4.8 mmol/L (3.5-5.5); Sodium 141 mmol/L (135-145)
--- NOTE | 2024-07-27 13:19 | P.PN ---
Subjective Progress Note Date: 07/27/24 Pt reports feeling overall better. Still reports dizziness and weakness when ambulating. Gen: In NAD, non-toxic HEENT: normocephalic, atraumatic, hearing acuity is intant, mucous membranes moist CVS: perfusing all extremities well, no pitting edema, Respiratory: symmetric chest expansion, no accessory muscle use, GI: soft, NTTP, ND, : no suprapubic tenderness, no CVA tenderness MSK/Derm: no rashes, cyanosis Neuro: CN II-XII intact, no motor weakness, Psych: cooperative, euthymic mood, judgment and insight is intact Hospital Course: 78-year-old female with history of dementia, COPD presenting with altered mentation and weakness. Vital signs unremarkable, laboratory workup unremarkable except for urine was positive for nitrites and small leukocyte esterase. Head CT did not show any acute process. CTA head and neck showed scattered sub-6 mm pulmonary nodules, recommending outpatient low-dose lung cancer screening. EKG showed normal sinus rhythm. Chest x-ray showed no acute process. Patient admitted for acute encephalopathy secondary to likely urinary tract infection with. Patient also had ataxia, neurology consulted. Assessment and Plan: Acute encephalopathy Generalized weakness Ataxia History of dementia Urinary tract infection -CT brain, CTA head and neck did not show any acute process -B12, folic acid, TSH ordered, consistent with B12 deficiency and was started on B12 replacement by neurology -Patient to be continued on ceftriaxone 1 g IV daily -Urine cultures not obtained prior to giving antibiotics, repeat -Neurology consulted, pending recommendations Mild hyperkalemia -Repeat BMP tomorrow COPD, not in exacerbation -Continue to monitor Subcentimeter pulmonary nodules -Outpatient follow-up DVT ppx: Lovenox Code status: Full code Anticipated discharge place: Pending PT assessment Anticipated discharge time: Pending clinical course Objective - Vital Signs Vital signs: Vital Signs Temp 98.3 F 07/27/24 07:00 Pulse 65 07/27/24 07:00 Resp 17 07/27/24 02:37 BP 116/63 07/27/24 07:00 Pulse Ox 99 07/27/24 07:00 FiO2 Intake & Output 07/26/24 07/27/24 07/27/24 18:59 06:59 18:59 Intake Total 118 Balance 118 Weight 46.72 kg 46.72 kg Intake: Oral 118 Other: Voiding Method Toilet Toilet # Voids 4 - Labs CBC & Chem 7: 07/26/24 07:12 07/27/24 04:39 Labs: Abnormal Lab Results - Last 24 Hours (Table) 07/26/24 Range/Units 07:12 Vitamin B12 154.0 L (200.0-944.0) pg/mL
--- NOTE | 2024-07-28 12:54 | P.PN ---
Subjective Progress Note Date: 07/28/24 Pt reports feeling overall better. No new complaints at this time. PT eval is pending. Gen: In NAD, non-toxic HEENT: normocephalic, atraumatic, hearing acuity is intant, mucous membranes moist CVS: perfusing all extremities well, no pitting edema, Respiratory: symmetric chest expansion, no accessory muscle use, GI: soft, NTTP, ND, : no suprapubic tenderness, no CVA tenderness MSK/Derm: no rashes, cyanosis Neuro: CN II-XII intact, no motor weakness, Psych: cooperative, euthymic mood, judgment and insight is intact Hospital Course: 78-year-old female with history of dementia, COPD presenting with altered mentation and weakness. Vital signs unremarkable, laboratory workup unremarkable except for urine was positive for nitrites and small leukocyte esterase. Head CT did not show any acute process. CTA head and neck showed scattered sub-6 mm pulmonary nodules, recommending outpatient low-dose lung cancer screening. EKG showed normal sinus rhythm. Chest x-ray showed no acute process. Patient admitted for acute encephalopathy secondary to likely urinary tract infection with. Patient also had ataxia, neurology consulted. Assessment and Plan: Acute encephalopathy Generalized weakness Ataxia History of dementia Urinary tract infection -CT brain, CTA head and neck did not show any acute process -B12, folic acid, TSH ordered, consistent with B12 deficiency and was started on B12 replacement by neurology -Patient to be continued on ceftriaxone 1 g IV daily -Urine cultures not obtained prior to giving antibiotics, repeat -Neurology consulted, pending recommendations Mild hyperkalemia -Repeat BMP tomorrow COPD, not in exacerbation -Continue to monitor Subcentimeter pulmonary nodules -Outpatient follow-up DVT ppx: Lovenox Code status: Full code Anticipated discharge place: Pending PT assessment Anticipated discharge time: Pending clinical course Objective - Vital Signs Vital signs: Vital Signs Temp 97.6 F 07/28/24 07:48 Pulse 53 L 07/28/24 09:33 Resp 17 07/28/24 07:48 BP 104/55 07/28/24 09:33 Pulse Ox 97 07/28/24 09:33 FiO2 Intake & Output 07/27/24 07/28/24 07/28/24 18:59 06:59 18:59 Intake Total 138 354 Balance 138 354 Intake: Oral 138 354 Other: Voiding Method Toilet Toilet Toilet # Voids 1 5 # Bowel Movements 0 - Labs CBC & Chem 7: 07/26/24 07:12 07/27/24 04:39
--- NOTE | 2024-07-28 13:25 | P.PN ---
Subjective Progress Note Date: 07/27/24 Patient was seen for a follow-up. Patient is laying in the bed. She feels dizzy every time she sits up. No new concerns. Objective - Vital Signs Vital signs: Vital Signs Temp 97.6 F 07/28/24 07:48 Pulse 53 L 07/28/24 09:33 Resp 17 07/28/24 07:48 BP 104/55 07/28/24 09:33 Pulse Ox 97 07/28/24 09:33 FiO2 Intake & Output 07/27/24 07/28/24 07/28/24 18:59 06:59 18:59 Intake Total 138 354 Balance 138 354 Intake: Oral 138 354 Other: Voiding Method Toilet Toilet Toilet # Voids 1 5 # Bowel Movements 0 - Exam Patient's somnolent. Examination otherwise unchanged. - Labs CBC & Chem 7: 07/26/24 07:12 07/27/24 04:39 Assessment and Plan Assessment: * 72-year-old female presented with 2-week history of intermittent dizziness, lightheadedness, and near syncopal symptoms. Exact cause is uncertain. * Dementia, moderate degree * Postural dizziness, rule out orthostatic hypotension * Probable acute UTI * Vitamin B12 deficiency * Folate borderline Plan: * Patient has presented with vague symptoms of dizziness, lightheadedness, nausea and near syncopal symptoms. Possibly due to UTI. Patient currently on ceftriaxone for UTI. * CTA of head and neck revealed no evidence of dissection of the cervical internal carotid arteries or vertebral arteries or any evidence of significant stenosis at the carotid bifurcation. No evidence of intracranial high-grade stenosis or intracranial aneurysm. Scattered sub-6 mm pulmonary nodules, follow-up low-dose lung cancer screening recommended. Mild emphysema. We will defer to IM regarding pulmonary nodule. * Vitamin B12 154, consistent with B12 deficiency. We will start vitamin B12 replacement. * Folic acid 6.9, borderline. We will also start folate replacement. * TSH is normal 3.29 * Patient feels dizziness every time when sitting up. We will check orthostatics. * I discussed with patient's daughter Sara in detail. Recommended patient to follow-up with neurologist outpatient for management of dementia. She may benefit with cognitive enhancing medication. At present we will start B12 folate replacement. * Neurologically otherwise clear. Addendum: Orthostatics checked, supine blood pressure 94/46, sitting 120/51 and standing 105/63. Pulse rate were 52, 59 and 67 respectively. Orthostatics negative.
[2024-07-28] MEDS ORDERED: QUEtiapine 25 MG TAB PO PRN (16:29)
[2024-07-29] MEDS: ACETAMINOPHEN TAB 325 MG TAB PO PRN (06:33)
--- NOTE | 2024-07-29 09:47 | P.PN ---
Subjective Progress Note Date: 07/29/24 Pt reporting some black specks in eyes, but no vision loss. Pending PT evaluation. Gen: In NAD, non-toxic HEENT: normocephalic, atraumatic, hearing acuity is intant, mucous membranes moist CVS: perfusing all extremities well, no pitting edema, Respiratory: symmetric chest expansion, no accessory muscle use, GI: soft, NTTP, ND, : no suprapubic tenderness, no CVA tenderness MSK/Derm: no rashes, cyanosis Neuro: CN II-XII intact, no motor weakness, Psych: cooperative, euthymic mood, judgment and insight is intact Hospital Course: 78-year-old female with history of dementia, COPD presenting with altered mentation and weakness. Vital signs unremarkable, laboratory workup unremarkable except for urine was positive for nitrites and small leukocyte esterase. Head CT did not show any acute process. CTA head and neck showed scattered sub-6 mm pulmonary nodules, recommending outpatient low-dose lung cancer screening. EKG showed normal sinus rhythm. Chest x-ray showed no acute process. Patient admitted for acute encephalopathy secondary to likely urinary tract infection with. Patient also had ataxia, neurology consulted. Assessment and Plan: Acute encephalopathy Generalized weakness Ataxia History of dementia Urinary tract infection -CT brain, CTA head and neck did not show any acute process -B12, folic acid, TSH ordered, consistent with B12 deficiency and was started on B12 replacement by neurology -Patient to be continued on ceftriaxone 1 g IV daily -Urine cultures not obtained prior to giving antibiotics, repeat UA is clear. One more day of abx for UTI to complete 5 days -Neurology consulted, pending recommendations Mild hyperkalemia -Repeat BMP tomorrow COPD, not in exacerbation -Continue to monitor Subcentimeter pulmonary nodules -Outpatient follow-up DVT ppx: Lovenox Code status: Full code Anticipated discharge place: Pending PT assessment Anticipated discharge time: Pending clinical course Objective - Vital Signs Vital signs: Vital Signs Temp 97.8 F 07/29/24 07:19 Pulse 73 07/29/24 07:19 Resp 16 07/29/24 07:19 BP 91/51 07/29/24 07:19 Pulse Ox 100 07/29/24 07:19 FiO2 Intake & Output 07/28/24 07/29/24 07/29/24 18:59 06:59 18:59 Intake Total 472 360 Balance 472 360 Intake: Oral 472 360 Other: Voiding Method Toilet Toilet # Voids 2 2 - Labs CBC & Chem 7: 07/26/24 07:12 07/27/24 04:39
[2024-07-29 10:25] LABS: BUN/Creat Ratio 17.12 Ratio (12.00-20.00); Blood Urea Nitrogen 13.7 mg/dL (9.0-27.0); Calcium 8.9 mg/dL (8.7-10.3); Chloride 106 mmol/L (96-109); Glucose 99 mg/dL (70-110); Magnesium 1.8 mg/dL (1.5-2.4); Potassium 5.3 mmol/L (3.5-5.5); Sodium 140 mmol/L (135-145)
--- NOTE | 2024-07-29 12:34 | P.PN ---
Subjective Progress Note Date: 07/29/24 Patient was seen for a follow-up. Patient is laying in the bed. A sitter was also present. Patient continues to complain of constant dizziness even when she is laying down. When she rolls over to the bed to the left or right side, it does not get any worse. However when she sits up, it gets worse and she becomes lightheaded and further gets worse when she stands up. Her orthostatics have been completely negative. Objective - Vital Signs Vital signs: Vital Signs Temp 97.8 F 07/29/24 07:19 Pulse 73 07/29/24 07:19 Resp 16 07/29/24 07:19 BP 91/51 07/29/24 07:19 Pulse Ox 100 07/29/24 07:19 FiO2 Intake & Output 07/28/24 07/29/24 07/29/24 18:59 06:59 18:59 Intake Total 472 360 118 Balance 472 360 118 Intake: Oral 472 360 118 Other: Voiding Method Toilet Toilet Toilet # Voids 2 2 - Exam Patient is alert and awake in no distress. She has a flat affect. She complains of feeling dizzy. Speech and language functions are normal. When she is set up, she started complaining of more dizziness. - Labs CBC & Chem 7: 07/26/24 07:12 07/29/24 03:51 Assessment and Plan Assessment: * 72-year-old female presented with 2-week history of intermittent dizziness, lightheadedness, and near syncopal symptoms. Probable acute UTI, probable peripheral vestibular dysfunction. * Constant dizziness, lightheadedness, possible due to labyrinthitis. * Dementia, moderate degree * Postural dizziness, orthostatics completely normal. * Probable acute UTI * Vitamin B12 deficiency * Folate borderline Plan: * Patient continues to complain of dizziness, all the time. Possible peripheral vestibular dysfunction. Orthostatics repeatedly negative. Today was supine blood pressure 91/51, sitting 110/57 and standing 117/60. * Start meclizine 25 mg 3 times daily. * Patient has presented with vague symptoms of dizziness, lightheadedness, nausea and near syncopal symptoms. Possibly due to UTI. Patient currently on ceftriaxone for UTI. * CTA of head and neck revealed no evidence of dissection of the cervical internal carotid arteries or vertebral arteries or any evidence of significant stenosis at the carotid bifurcation. No evidence of intracranial high-grade stenosis or intracranial aneurysm. Scattered sub-6 mm pulmonary nodules, follow-up low-dose lung cancer screening recommended. Mild emphysema. We will defer to IM regarding pulmonary nodule. * Vitamin B12 154, consistent with B12 deficiency. Patient received vitamin B12 1000 mcg IM x 3 days now we will start B12 1000 mcg orally daily.. * Folic acid 6.9, borderline. Also on folate replacement. * TSH is normal 3.29 * I discussed with patient's daughter Sara in detail. Recommended patient to follow-up with neurologist outpatient for management of dementia. She may benefit with cognitive enhancing medication. At present we will start B12 folate replacement. * Patient will receive meclizine 25 mg 3 times a day, and we will see if it helps. * Dr. Michael Dangelo to start neurology service from Tuesday.
[2024-07-29] MEDS: MECLIZINE 25 MG TAB PO PRN (12:35)
[2024-07-29] MEDS: QUEtiapine 25 MG TAB PO PRN (15:17)
[2024-07-30] MEDS: CYANOCOBALAMIN 500 MCG TAB PO SCH (09:01)
--- NOTE | 2024-07-30 15:35 | P.PN ---
Subjective Progress Note Date: 07/30/24 No new complaints. Pt is pending placement. Gen: In NAD, non-toxic HEENT: normocephalic, atraumatic, hearing acuity is intant, mucous membranes moist CVS: perfusing all extremities well, no pitting edema, Respiratory: symmetric chest expansion, no accessory muscle use, GI: soft, NTTP, ND, : no suprapubic tenderness, no CVA tenderness MSK/Derm: no rashes, cyanosis Neuro: CN II-XII intact, no motor weakness, Psych: cooperative, euthymic mood, judgment and insight is intact Hospital Course: 78-year-old female with history of dementia, COPD presenting with altered mentation and weakness. Vital signs unremarkable, laboratory workup unremarkable except for urine was positive for nitrites and small leukocyte esterase. Head CT did not show any acute process. CTA head and neck showed scattered sub-6 mm pulmonary nodules, recommending outpatient low-dose lung cancer screening. EKG showed normal sinus rhythm. Chest x-ray showed no acute process. Patient admitted for acute encephalopathy secondary to likely urinary tract infection with. Patient also had ataxia, neurology consulted. Assessment and Plan: Acute encephalopathy Generalized weakness Ataxia History of dementia Urinary tract infection -CT brain, CTA head and neck did not show any acute process -B12, folic acid, TSH ordered, consistent with B12 deficiency and was started on B12 replacement by neurology -Patient to be continued on ceftriaxone 1 g IV daily -Urine cultures not obtained prior to giving antibiotics, repeat UA is clear. One more day of abx for UTI to complete 5 days -Neurology consulted, pending recommendations Mild hyperkalemia -Repeat BMP tomorrow COPD, not in exacerbation -Continue to monitor Subcentimeter pulmonary nodules -Outpatient follow-up DVT ppx: Lovenox Code status: Full code Anticipated discharge place: Pending PT assessment Anticipated discharge time: Pending clinical course Objective - Vital Signs Vital signs: Vital Signs Temp 98.1 F 07/30/24 14:00 Pulse 69 07/30/24 14:00 Resp 18 07/30/24 14:00 BP 97/52 07/30/24 14:00 Pulse Ox 98 07/30/24 14:00 FiO2 Intake & Output 07/29/24 07/30/24 07/30/24 18:59 06:59 18:59 Intake Total 354 236 Output Total 700 Balance 354 -464 Weight 46.72 kg Intake: Oral 354 236 Output: Urine 700 Other: Voiding Method Toilet Toilet Toilet # Voids 3 6 # Bowel Movements 1 - Labs CBC & Chem 7: 07/26/24 07:12 07/29/24 03:51
--- NOTE | 2024-07-30 15:52 | CDI ---
Documentation Clarification Form Date: 07/30/2024 03:38:32 PM From: Anju Jane RN, CCDS Phone: [phone] Admit Date: 07/27/2024 01:16:00 PM Patient Name: Floridalma Wilkerson Visit Number: [id number] Discharge Date: ATTENTION: The Clinical Documentation Specialists (CDI) and [facility] Coding Staff appreciate your assistance in clarifying documentation. Please respond to the clarification below the line at the bottom and electronically sign. The CDI & [facility] Coding staff will review the response and follow-up if needed. Please note: Queries are made part of the Legal Health Record. If you have any questions, please contact the author of this message via ITS. Doctor Trevor Marks Encephalopathy is documented in the progress notes. Additional clarification regarding the type of encephalopathy is requested. History/Risk Factors: COPD, dementia, liver disease. Presented with AMS and inability to ambulate. Admitted with encephalopathy due to UTI. Clinical Indicators: H&P: "admit this patient for encephalopathy and evaluation of UTI." 07/26 IM: "Patient admitted for acute encephalopathy secondary to likely urinary tract infection. Acute encephalopathy." 07/25 UA: nitrite +, small leukocyte esterase, occasional bacteria Treatment: IV Rocephin 1000mg x1 on 07/25; IV Rocephin 1gm daily 07/26- current; 1L 0.9 NS IV bolus x1 on 07/25 then 75mL/hr Please clarify the type of encephalopathy, if known: [ ] Metabolic Encephalopathy [ ] Other, please specify [ ] Unable to determine Metabolic Encephalopathy MTDD
[2024-07-31] MEDS: LORATADINE 10 MG TAB PO SCH (10:57)
[2024-07-31] MEDS: FLUTICASONE NASAL 50MCG/SPRAY 16GM BTL EA NOSTRIL SCH (12:50)
--- NOTE | 2024-07-31 16:33 | P.PN ---
Subjective Progress Note Date: 07/31/24 78-year-old female with history of dementia, COPD presenting with altered mentation and weakness. Vital signs unremarkable, laboratory workup unremarkable except for urine was positive for nitrites and small leukocyte esterase. Head CT did not show any acute process. CTA head and neck showed scattered sub-6 mm pulmonary nodules, recommending outpatient low-dose lung cancer screening. EKG showed normal sinus rhythm. Chest x-ray showed no acute process. Patient admitted for acute encephalopathy secondary to likely urinary tract infection with. Patient also had ataxia, neurology consulted. 07/31 Patient was seen and examined. Reports nasal congestion and itchy eyes. No new labs today. General: non toxic, no distress, appears at stated age Derm: warm, dry Head: atraumatic, normocephalic, symmetric Eyes: EOMI, no lid lag, anicteric sclera Mouth: no lip lesion, mucus membranes moist Cardiovascular: S1S2 reg, no murmur Lungs: CTA bilateral, no rhonchi, no rales, no accessory muscle use Ext: no gross muscle atrophy, no edema, no contractures Neuro: no focal neuro deficits Psych: Alert, oriented, appropriate affect Based on my assessment of this patient, this patient meets a high complexity level of care. Acute encephalopathy Generalized weakness Ataxia History of dementia Urinary tract infection -CT brain, CTA head and neck did not show any acute process -B12, folic acid, TSH ordered, consistent with B12 deficiency and was started on B12 replacement by neurology -Completed course of Rocephin -Neurology consulted, pending recommendations COPD, not in exacerbation -Continue to monitor Subcentimeter pulmonary nodules -Outpatient follow-up Resolved: HyperK CODE STATUS: FULL CODE DVT Prophylaxis: Lovenox SQ GI Prophylaxis: Protonix Designated medical POA if patient is not able to make medical decisions for themselves: I have reviewed the following residential solar sales consultant notes: I have reviewed the results of the following tests: I have ordered the following tests: I have discussed the care of this patient with the following independent historian: ANDREA. I have independently interpreted the following test below: I have discussed the management of this patient with the following physician: Objective - Vital Signs Vital signs: Vital Signs Temp 98.5 F 07/31/24 14:00 Pulse 57 L 07/31/24 14:00 Resp 16 07/31/24 14:00 BP 109/65 07/31/24 14:00 Pulse Ox 97 07/31/24 14:00 FiO2 Intake & Output 07/30/24 07/31/24 07/31/24 18:59 06:59 18:59 Intake Total 236 240 Output Total 700 Balance -464 240 Weight 46.72 kg Intake: Oral 236 240 Output: Urine 700 Other: Voiding Method Toilet Toilet Toilet # Voids 2 1 # Bowel Movements 2 - Labs CBC & Chem 7: 07/26/24 07:12 07/29/24 03:51
--- NOTE | 2024-07-31 16:49 | P.PN ---
Subjective Progress Note Date: 07/31/24 I am seeing the patient for the first time. Please refer to Dr. Alves for further details. Patient is having lightheadeness/dizziness with movement. Denies focal weakness, visual disturbance, numbness. Objective - Vital Signs Vital signs: Vital Signs Temp 98.5 F 07/31/24 14:00 Pulse 57 L 07/31/24 14:00 Resp 16 07/31/24 14:00 BP 109/65 07/31/24 14:00 Pulse Ox 97 07/31/24 14:00 FiO2 Intake & Output 07/30/24 07/31/24 07/31/24 18:59 06:59 18:59 Intake Total 236 240 Output Total 700 Balance -464 240 Weight 46.72 kg Intake: Oral 236 240 Output: Urine 700 Other: Voiding Method Toilet Toilet Toilet # Voids 2 1 # Bowel Movements 2 - Exam General: Lying in bed and is not in acute distress. Neuro: The patient is awake, alert, oriented to self, place and time. Is following simple commands. Pupils are round, equal and reactive to light. Visual palumbo are full to confrontation. EOM intact and no nystagmus. No facial weakness. No dysarthria. Motor: Strength 5/5. Cerebellar: Normal to finger to nose bilaterally. - Labs CBC & Chem 7: 07/26/24 07:12 07/29/24 03:51 Assessment and Plan Assessment: * 72-year-old female presented with 2-week history of intermittent dizziness, lightheadedness, and near syncopal symptoms. Probable acute UTI, probable peripheral vestibular dysfunction. * Constant dizziness, lightheadedness, possible due to labyrinthitis. * Dementia, moderate degree * Postural dizziness, orthostatics completely normal. * Probable acute UTI * Vitamin B12 deficiency * Folate borderline Plan: * Patient continues to complain of dizziness, all the time. Possible peripheral vestibular dysfunction. Orthostatics repeatedly negative. * Start meclizine 25 mg 3 times daily. * Patient has presented with vague symptoms of dizziness, lightheadedness, nausea and near syncopal symptoms. Possibly due to UTI. Patient currently on ceftriaxone for UTI. * CTA of head and neck revealed no evidence of dissection of the cervical internal carotid arteries or vertebral arteries or any evidence of significant stenosis at the carotid bifurcation. No evidence of intracranial high-grade stenosis or intracranial aneurysm. Scattered sub-6 mm pulmonary nodules, follow-up low-dose lung cancer screening recommended. Mild emphysema. We will defer to IM regarding pulmonary nodule. * Vitamin B12 154, consistent with B12 deficiency. Patient received vitamin B12 1000 mcg IM x 3 days now we will start B12 1000 mcg orally daily.. * Folic acid 6.9, borderline. Also on folate replacement. * TSH is normal 3.29 * Recommended patient to follow-up with neurologist outpatient for management of dementia. She may benefit with cognitive enhancing medication. At present we will start B12 folate replacement. Will follow-up patient sporadically. Time with Patient: Less than 30
--- NOTE | 2024-08-01 11:00 | P.DS ---
Providers Date of admission: 07/27/24 13:16 Expected date of discharge: 08/01/24 Attending physician: Trevor Marks MD Consults: 07/25/24 22:19 Consult Physician Urgent Consulting Provider: [place] Alves Consult Reason/Comments: ataxia Do you want consulting provider notified?: Yes Primary care physician: [place] Hospital Course: 78-year-old female with history of dementia, COPD presenting with altered mentation and weakness. Patient underwent extensive evaluation in the ED. BP 120/71, HR 66, T 97.3, RR 22, 99% on RA. CBC, CMP significant for Hct 47. Troponin < 0.012. UA positive nitrite, small LE. Head CT did not show any acute process. CTA head and neck showed scattered sub-6 mm pulmonary nodules, recommending outpatient low-dose lung cancer screening. EKG showed normal sinus rhythm. Chest x-ray showed no acute process. Patient admitted for acute encephalopathy likely due to urinary tract infection. Patient also had ataxia, neurology consulted. Treated with 5 days of Rocephin. B12 low at 154 which was replaced with IM 1000 mcg x 3 followed by 1000 mcg PO QD. Folic acid borderline low at 6.9 which was replaced with Folate 1 mg PO QD. Started on low dose Seroquel PRN for agitation. 08/01 Patient was seen and examined. She reports no complaints. No new labs done today. Discharge Plan: Discharge to [facility] today. Pulmonary appointment for pulmonary nodules seen on CTA head and neck (low dose CT scan recommended). Neurology appointment for dementia workup. General: non toxic, no distress, appears at stated age Derm: warm, dry Head: atraumatic, normocephalic, symmetric Eyes: EOMI, no lid lag, anicteric sclera Mouth: no lip lesion, mucus membranes moist Cardiovascular: S1S2 reg, no murmur Lungs: CTA bilateral, no rhonchi, no rales, no accessory muscle use Ext: no gross muscle atrophy, no edema, no contractures Neuro: no focal neuro deficits Psych: Alert, oriented, appropriate affect Based on my assessment of this patient, this patient meets a high complexity level of care. Acute encephalopathy Generalized weakness Ataxia History of dementia Urinary tract infection COPD, not in exacerbation Subcentimeter pulmonary nodules Resolved: HyperK This complex discharge took 35 minutes to complete. Patient Condition at Discharge: Stable Plan - Discharge Summary Discharge Rx Participant: No New Discharge Prescriptions: New Docusate [Colace] 100 mg PO DAILY PRN cap PRN Reason: Constipation Fluticasone Nasal [place] [Flonase Nasal [place]] 2 spray EA NOSTRIL DAILY ml QUEtiapine [SEROquel] 12.5 mg PO BID PRN tab PRN Reason: Anxiety Meclizine [Antivert] 25 mg PO TID PRN tab PRN Reason: Vertigo Loratadine [Claritin] 10 mg PO DAILY tab Folic Acid 1 mg PO DAILY tab Pantoprazole [Protonix] 40 mg PO AC-BRKFST tab Acetaminophen Tab [Tylenol] 650 mg PO Q4HR PRN tab PRN Reason: Fever And/ Or Pain Cyanocobalamin [Vitamin B-12] 1,000 mcg PO DAILY tab Discharge Medication List Acetaminophen Tab [Tylenol] 650 mg PO Q4HR PRN tab 08/01/24 [Rx] Cyanocobalamin [Vitamin B-12] 1,000 mcg PO DAILY tab 08/01/24 [Rx] Docusate [Colace] 100 mg PO DAILY PRN cap 08/01/24 [Rx] Fluticasone Nasal [place] [Flonase Nasal [place]] 2 spray EA NOSTRIL DAILY ml 08/01/24 [Rx] Folic Acid 1 mg PO DAILY tab 08/01/24 [Rx] Loratadine [Claritin] 10 mg PO DAILY tab 08/01/24 [Rx] Meclizine [Antivert] 25 mg PO TID PRN tab 08/01/24 [Rx] Pantoprazole [Protonix] 40 mg PO AC-BRKFST tab 08/01/24 [Rx] QUEtiapine [SEROquel] 12.5 mg PO BID PRN tab 08/01/24 [Rx] Follow up Appointment(s)/Referral(s): Srikanth Colon MD [Primary Care Provider] - 1-2 days [place] Trevino DO [STAFF PHYSICIAN] - 1 Week Ivelisse Padilla MD [STAFF PHYSICIAN] - 1 Week Activity/Diet/Wound Care/Special Instructions: Pulmonary appointment for pulmonary nodules seen on CTA head and neck (low dose CT scan recommended). Neurology appointment for dementia workup. Discharge Disposition: TRANSFER TO SNF/ECF
[2024-08-01 11:33] VITALS: RESP 16
[2024-08-01 15:01] VITALS: BP 113/67; PULSE 57; TEMP 98
== END 2024-08-01 17:42 | DRG 689 ==
LOC: EC 16:14 → 6NMEDSUR 22:19 → OBSVTOIN 07-27 13:16 → 6NMEDSUR 07-27 13:28
PROVIDERS: ADMIT Internal Medicine; ATTEND Internal Medicine
DX: N39.0 Urinary tract infection, site not specified (principal); G93.41 Metabolic encephalopathy; F05 Delirium due to known physiological condition; F03.B0 Unspecified dementia, moderate, without behavioral disturbance, psychotic disturbance, mood disturbance, and anxiety; J43.9 Emphysema, unspecified; R27.0 Ataxia, unspecified; E53.8 Deficiency of other specified B group vitamins; E86.0 Dehydration; E87.5 Hyperkalemia; F17.210 Nicotine dependence, cigarettes, uncomplicated; H83.09 Labyrinthitis, unspecified ear; H81.399 Other peripheral vertigo, unspecified ear; Z63.79 Other stressful life events affecting family and household
CPT/HCPCS: 36415; 70450; 70496; 70498; 71046; 80048; 80053; 81001; 81003; 82607; 82746; 83735; 84100; 84443; 84484; 85025; 93005; 96361; 96365; 96375; 99285